=== PATIENT | male | born 1955 | race Caucasian/White ===

== ENCOUNTER 2016-11-29 18:31 | Emergency (ER) | payer BC ==
[2016-11-29] MEDS ORDERED: SODIUM CHLORIDE 0.9% 1,000 ML ONE (19:22)
[2016-11-29] MEDS ORDERED: CEFTRIAXONE 1 GM VIAL ONE (21:01)
[2016-11-29] MEDS ORDERED: SODIUM CHLORIDE 0.9% 100 ML IV ONE (21:01)
[2016-11-29] MEDS ORDERED: KETOROLAC 30 MG/ML VIAL ONE (21:25)
[2016-11-29] MEDS ORDERED: ACETAMINOPHEN 325 MG TAB ONE (21:25)
[2016-11-29] MEDS ORDERED: AZITHROMYCIN 250 MG TAB ONE (21:29)
== END 2016-11-29 22:04 | disposition home or self-care (01) ==
LOC: ER 18:31
DX: R50.9 Fever, unspecified (principal); J15.9 Unspecified bacterial pneumonia
CPT/HCPCS: 36415; 71020; 80053; 82553; 82947; 84484; 85025; 87804; 93005; 96361; 96365; 96375